=== PATIENT | female | born 1960 | race Caucasian/White ===

== ENCOUNTER 2021-07-15 14:17 | Emergency (ER) | payer BC, SELFPAY ==
--- NOTE | ~2021-07-15 | XR_ITS ---
EXAMINATION: XR wrist RT min 3V, XR hand RT min 3V DATE: 07/15/2021 14:44 INDICATION: Right hand and wrist pain post fall TECHNIQUE: 1. Posteroanterior, ulnar deviation, oblique, and lateral views of the right wrist were obtained. 2. Dorsal palmar, oblique and lateral views of the right hand were obtained. COMPARISON: None. FINDINGS: Alignment of the right hand and wrist are normal. No fracture identified. Mild polyarticular osteoar thritis involving the first carpometacarpal, first metacarpophalangeal and multiple interphalangeal j oints with distal predominance. Mild periarticular soft tissue swelling at the second metacarpophalan geal and fifth proximal interphalangeal joints. IMPRESSION: 1. 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 No acute osseous abnormality. Reviewed, dictated and finalized at location A. IMPRESSION: 1. 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 No acute osseous abnorma lity.
[2021-07-15 14:28] VITALS: BP 143/72; PULSE 69; RESP 16; TEMP 37.4; O2SAT 99
--- NOTE | 2021-07-15 14:28 | ED.UPPEXIN ---
HPI - Extremity Injury (Upper) General Chief Complaint: Extremity Injury, Upper Stated Complaint: RIGHT ARM/HAND PAIN Time Seen by Provider: 07/15/21 14:28 Source: patient and RN notes reviewed History of Present Illness HPI narrative: Patient is a 61-year-old female who presents the urgent care with complaints of right arm and hand pain. Patient states that she fell in the shower last night, catching herself with her right hand and is now having pain to the right palm radiating up the right forearm. Patient states that she did not hit her head and no loss of consciousness. States that she took a leftover oxycodone which is not touching her pain . No other acute complaints. No acute distress noted. Patient aware of the plan of care. Some parts of this dictation were generated by voice recognition software and may contain typographical and/or grammatical inaccuracies. Related Data Allergies Allergy/AdvReac Type Severity Reaction Status Date / Time No Known Allergies Allergy Unverified 04/14/12 16:11 Review of Systems Review of Systems: CONSTITUTIONAL: Denies fever, chills, or sweats. EYES: Denies visual changes, redness, or discharge. ENT: Denies rhinorrhea, congestion, sore throat, or otalgia. CARDIOVASCULAR: Denies chest pain, palpitations, or edema. RESPIRATORY: Denies cough or dyspnea. GASTROINTESTINAL: Denies abdominal pain, nausea, vomiting, or diarrhea. GENITOURINARY: Denies dysuria or hematuria. SKIN: Denies rash or itching. MUSCULOSKELETAL: Reports of right hand and right wrist pain NEUROLOGIC: Denies headache, numbness, or weakness. All other systems reviewed are negative, except as documented in HPI. PMFSH Comments At the time of my signature, I reviewed and agree with the nursing past medical, surgical, social, and family history. There is no relevant family history pertinent to the patient complaint. Exam Narrative: GENERAL: This is a well-nourished, well-developed patient, in no apparent distress. HEAD: normocephalic, atraumatic. EYES: PERRL. Sclera clear/white. Vision is grossly intact. EARS: External ears normal NOSE: External nose normal with no obvious nasal discharge, nares without redness, no rhinorrhea. THROAT: Mucous membranes moist NECK: Neck supple CARDIOVASCULAR: Regular rate and rhythm without murmurs, gallops, or rubs. RESPIRATORY: Clear to auscultation. Breath sounds equal bilaterally. No wheezes, rales, or rhonchi. SKIN: Small blood blister noted to the normal aspect of the right middle finger. Warm, intact with no suspicious lesions or rash, good texture and turgor. NEURO: awake, alert, and oriented to person, place and time. There were no obvious focal neurologic abnormalities. EXTREMITIES: No obvious deformity or fracture noted to right upper extremity/right hand. No ecchymosis or erythema noted. Range of motion not tested due to complaints of pain. Moderate tenderness over the thenar eminence of the right hand. Positive strong right radial pulse with capillary refill less than 2 seconds. Course Vital Signs Vital signs: Vital Signs Temperature 99.4 F 07/15/21 14:28 Pulse Rate 69 07/15/21 14:28 Respiratory Rate 16 07/15/21 14:28 Blood Pressure 143/72 H 07/15/21 14:28 Pulse Oximetry 99 07/15/21 14:28 Temperature 99.4 F 07/15/21 14:28 Pulse Rate 69 07/15/21 14:28 Respiratory Rate 16 07/15/21 14:28 Blood Pressure 143/72 H 07/15/21 14:28 Pulse Oximetry 99 07/15/21 14:28 Reviewed-patient is informed that they may have pre-hypertension or hypertension based on a blood pressure reading in the department. I recommend the patient call the primary care provider listed on their discharge instructions or a physician of their choice this week to arrange follow-up for further evaluation of possible pre-hypertension or hypertension. MDM - Extremity Injury (Upper) MDM Narrative Medical decision making narrative: Reviewed x-ray results with the patient. She is delroy
== END 2021-07-15 15:28 | disposition home or self-care (01) ==
PROVIDERS: Emergency Provider Nurse Practitioner Family; PCP Internal Medicine
DX: S60.221A Contusion of right hand, initial encounter (principal); W18.2XXA Fall in (into) shower or empty bathtub, initial encounter; Y93.E1 Activity, personal bathing and showering; M19.041 Primary osteoarthritis, right hand
CPT/HCPCS: 73110; 73130; 99213; G0463

== ENCOUNTER 2021-09-27 15:14 | Outpatient (CLI) | payer BC, SELFPAY ==
--- NOTE | ~2021-09-27 | MM_ITS ---
EXAMINATION: MM screening [facility] BI w gerald HISTORY: Screening mammogram TECHNIQUE: Craniocaudal and mediolateral oblique 3-D tomosynthesis images were obtained and synthetic 2-D images were generated. CAD analysis was submitted and interpreted. COMPARISON: 03/02/2019, , 12/12/2016 bilateral screening mammogram examinations. The urinary The BREAST PARENCHYMAL COMPOSITION: There are scattered areas of fibroglandular density. FINDINGS: There is no evidence of suspicious mass, calcification, or architectural distortion to sugg est malignancy in either breast. There has been no suspicious interval change. IMPRESSION: 1. No mammographic evidence of malignancy. 2. Recommend routine screening mammography in one year. BI-RADS Category 1: Negative Reviewed, dictated and finalized at location A. COMMUNICATIONS LINE MECHANIC
== END 2021-09-27 15:15 | disposition home or self-care (01) ==
PROVIDERS: PCP Internal Medicine; Visit Provider Internal Medicine
DX: Z12.31 Encounter for screening mammogram for malignant neoplasm of breast (principal)
CPT/HCPCS: 77063; 77067

== ENCOUNTER → 2023-03-05 11:04 | Outpatient (CLI) | payer BC, SELFPAY ==
--- NOTE | ~2023-03-05 | MM_ITS ---
EXAMINATION: MM screening [facility] BI w gerald HISTORY: Screening mammogram TECHNIQUE: Craniocaudal and mediolateral oblique 3-D tomosynthesis images were obtained and synthetic 2-D images were generated. CAD analysis was submitted and interpreted. COMPARISON: 09/27/2021, 03/02/2019, 01/05/2018 BREAST PARENCHYMAL COMPOSITION: There are scattered areas of fibroglandular density. FINDINGS: No suspicious mass, calcification, or architectural distortion are identified in either [place] ast to suggest malignancy. There has been no suspicious interval change. IMPRESSION: 1. No mammographic evidence of malignancy. 2. Recommend routine screening mammography in one year. BI-RADS Category 1: Negative Reviewed, dictated and finalized at location A.
--- NOTE | ~2023-03-05 | DEXA_ITS ---
Bone Density Report Name: CELINA COLON Age: 62 Sex: Female Ethnicity: White Date of : 1960 Indication: postmenopausal; screening for osteoporosis; Referring Provider: YAIMA*, YADIRA Morfin Study: Bone densitometry was performed. Exam Date: March 05, 2023 Accession number: [id number] Bone Density: Region BMD T-score Z-score Classification AP Spine (L1-L4) 0.967 -0.7 0.9 Normal Femoral Neck (Left) 0.766 -0.7 0.7 Normal Total Hip (Left) 0.869 -0.6 0.5 Normal Femoral Neck (Right) 0.708 -1.3 0.1 Osteopenia Total Hip (Right) 0.801 -1.2 -0.1 Osteopenia Total Hip Mean 0.835 -0.9 0.2 Normal World Health Organization criteria for BMD impression classify patients as: Normal (T-score at or above -1.0), Osteopenia (T-score between -1.0 and -2.5), or Osteoporosis (T-score at or below -2.5). 10-year Fracture Risk(1): Major Osteoporotic Fracture 7.8% Hip Fracture 0.6% Reported Risk Factors: [place] (), Neck BMD=0.708, BMI=23.7 (1) FRAX(R) Version 3.08. Fracture probability calculated for an untreated patient. Fracture probability may be lower if the patient has received treatment. Impression: The patient has low bone mass, based on the Right Femoral Neck T-score. The patient has an estimated ten-year risk of hip fracture of 0.6% and an estimated ten-year risk of major fracture of 7.8%, based on the WHO FRAX algorithm. Discussion: BONE DENSITY IS LOW AT ONE OR MORE SKELETAL SITES. This patient's lowest T-score is low at one or more skeletal sites. It meets the World Health Organization's (WHO) criteria for ?low bone mass? (T-score between -1.0 and -2.5). The patient's 10-year risk of fracture as calculated by FRAX is less than the threshold where pharmacological therapy is recommended by the National Osteoporosis Foundation (NOF). However, all treatment decisions require clinical judgment and consideration of individual patient factors, including patient preferences, comorbidities, previous drug use, risk factors not captured in the FRAX model (e.g., frailty, falls, vitamin D deficiency, increased bone turnover, interval significant decline in bone density) and possible under or overestimation of fracture risk by FRAX. The patient should follow a healthful lifestyle (good nutrition with adequate calcium and vitamin D, and appropriate weight-bearing exercise). Follow-Up: Consider repeating this study in 2 to 3 years to reassess this patient's status, or sooner if there is some new clinical indication. Reported by: [facility] on 03/05/2023 11:43:00 AM. Reviewed, dictated and finalized at location ARony ROCA
== END ==
PROVIDERS: PCP Internal Medicine; Visit Provider Internal Medicine
DX: Z12.31 Encounter for screening mammogram for malignant neoplasm of breast (principal); M81.0 Age-related osteoporosis without current pathological fracture; M85.851 Other specified disorders of bone density and structure, right thigh
CPT/HCPCS: 77063; 77067; 77080

== ENCOUNTER 2025-01-13 09:50 | Outpatient (CLI) | payer OTHER, SELFPAY | END 2025-01-13 09:51 | disposition home or self-care (01) | LOC: MICIMG 09:52 | PROVIDERS: PCP Internal Medicine; Visit Provider Internal Medicine | DX: Z12.31 Encounter for screening mammogram for malignant neoplasm of breast (principal) | CPT/HCPCS: 77063; 77067 ==

== ENCOUNTER 2025-10-17 14:30 | Outpatient (CLI) | payer MEDICARE, SELFPAY ==
[2025-10-17 14:58] LABS: Hematocrit 28.8 % (37.0-47.0); Hemoglobin 9.3 g/dL (12.0-15.0); Immature Granulocyte Percent A 0.3 % (0-0.5); Lymphocytes Absolute Auto 1.98 K/mm3 (0.9-3.2); Mean Corpuscular HGB Conc 32.3 g/dl (32-36); Mean Corpuscular Hemoglobin 30.4 pg (26-34); Mean Corpuscular Volume 94.1 fl (80-100); Nucleated Red Blood Cells Absolute Auto 0.000 K/mm3 (0.0-0.012); Nucleated Red Blood Cells Perc 0.0 % (0.0-0.2); Platelet Count Result 351 k/mm3 (150-375); Red Blood Count 3.06 M/mm3 (4.2-5.4); White Blood Count 6.8 K/mm3 (4.5-10.0)
[2025-10-17 15:20] LABS: Alanine Aminotransferase 12 U/L (6-35); Albumin Level 3.7 g/dL (3.5-5.1); Alkaline Phosphatase 48 U/L (38-126); Anion Gap 5 mmol/L (4-12); Aspartate Amino Transferase 21 U/L (14-36); Bilirubin,Total 0.2 mg/dL (0.2-1.3); Blood Urea Nitrogen 23 mg/dL (7-17); Calcium 8.6 mg/dL (8.4-10.2); Carbon Dioxide 26 mmol/L (22-30); Chloride 107 mmol/L (98-107); Estimated Glomerular Filt Rate > 60; Glucose 130 mg/dL (65-110); Potassium 3.6 mmol/L (3.4-5.0); Sodium 138 mmol/L (137-145); Total Protein 6.3 g/dL (6.3-8.2)
--- OUTSIDE RECORDS SUMMARY | 2025-10-17 15:33 | XMS_ITS | Encounter Summary ---
Author Organization [facility] Address [address] [place] [address] Care Team Providers Care Environmental Field Team Member Name Role Phone Gallo Hardy MD Primary Care Provider [phone] Encounter Details Date Type Department Care Team (Late st Contact Info) Description 2019 Lab Requisition [facility] Care DermPath Lab [address] [place] [id number] Michelle Arias MD [address] [facility] [address] [place] [address] Social History Tobacco Use Types Packs/Day Years Used Date Smoking Tobacco: Never Assessed Comments Unknown Sex and Gender Information Value Date Recorded Sex Assigned at Not on file Legal 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 Gender Identity Not on file Sexual Orientation Not on file documented as of this encounter Plan of Treatment Not on file documented as of this encounter Procedures Procedure Name Priority Date/Time Associated Diagnosis Comments DERMATOPATHOLOGY Routine 05/06/2019 12:0 0 AM CDT documented in this encounter Results * DERMATOPATHOLOGY (05/06/2019 12:00 AM CDT) Case Report Dermatopathology Report Case: [id number] Authorizing Provider: Michelle Arias MD Collected: 05/06/2019 12:00 AM Pathologist: Belem Kline MD Received: 2019 08:45 AM Specimens: A) - Skin, left puga B) - Skin, left thigh 9 1:17 PM CDT DERMATOPATHOLOGY LABORATORY Final Diagnosis Specimen A. SKIN, left puga: BASAL CELL CARCINOMA, SUPERFICIAL MULTIFOCAL (C44.719) Specimen B. SKIN, left thigh: PROMINENT BASILAR PIGMENTATION CONSISTENT WITH SOLAR LENTIGO (L81.4) 1:17 PM T DERMATOPATHOLOGY LABORATORY at 1317 CDT Clinical History A: BCC vs SCC. Cuts shaving. B: Lentigo. Irreg color. 1:17 PM CDT DERMATOPATHOLOGY LABORATORY Gross Description Specimen A: Received is one formalin filled container labeled with the patient's name and designated left puga. The specimen consists of a shave measuring [id number]. Jar 0. Specimen B: Received is one formalin filled container labeled with the patient's name and designated left thigh. The specimen consists of a shave measuring [id number]. Jar 0. 1:17 PM [facility] DERMATOPATHOLOGY LABORATORY Microscopic Description Specimen A. SKIN, left puga: Attached to the undersurface of the epidermis, there are small aggregates of basaloid cells with a high nuclear to cytoplasmic ratio and peripheral palisading. Specimen B. SKIN, left thigh: Sections show prominent pigmentation of the basal layer without a prominent increase in melanocytes. Some of the basilar keratinocytes are slightly enlarged but uniform. The rete ridges are not elongated. 1:17 PM T DERMATOPATHOLOGY LABORATORY Disclaimer An external and internal positive and negative controls are appropriate for the histochemical, immunohistochemical and immunofluorescence stain(s) in this case (if any), except where stated explicitly. The performance characteristics of the stain(s) cited in this report were developed and its performance characteristic determined by the Dermatopathology Laboratory at [facility], directed by Dr. Mark Suarez. These tests need not be, and therefore are not, approved by the [place] Food and Drug Administration. The tests are used for clinical purposes. Billing Codes Specimen Charges Stain Charges 30666 97614 1 1 1:17 PM CDT DERMATOPATHOLOGY LABORATORY Embedded Images 1:17 PM T DERMATOPATHOLOGY LABORATORY Pathology/Cytology TISSUE SPECIMEN FROM SKIN / Unknown 05/06/2019 2019 8:45 AM CDT Miscellaneous samples (specimen) TISSUE SPECIMEN FROM SKIN / Unknown 05/06/2019 2019 8:45 AM CDT Michelle Arias MD LAB - PATHOLOGY/CYTOLOGY OR DERABLES Final Result DERMATOPATHOLOGY LABORATORY [facility] - Department of Dermatology [address] [place] [address], 5th Floor Lab [address] [phone] documented in this encounter Visit Diagnoses Not on filedocumented in this encounter Care Teams Environmental Field Team Member Relationship Specialty Start Date End Date Gallo Hardy MD [address] [place] [address] [address] [place] [address] PCP - General 09/25/11 documented as of this encounter
--- OUTSIDE RECORDS SUMMARY | 2025-10-17 15:33 | XMS_ITS | Clinical Summary ---
Author Organization [facility] Address [address] [place] [address] Care Team Providers Care Medical Concierge Name Role Phone Gallo Hardy MD Primary Care Provider [phone] Source Comments [facility],non-owned Affiliates and Associated Physician Practices is amultiple site organization consisting of ambulatory clinics and hospital sitesin [place], [place], [place]. This disclosure is being madepursuant to the Care Everywhere program and may not contain all information available regarding this patient. Last updated 18.[facility] Allergies No known active allergies Medications * Be aware that medications may not be up to date on this document. Alwaysverify current medications with the patient. 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 Gender Identity Not on file Sexual Orientation Not on file Last Filed Vital Signs Vital Sign Reading Time Taken Comments Blood Pressure 115/82 07/15/2021 1:52 AM CDT Pulse 65 07/15/2021 1:52 AM CDT Temperature 36.7 C (98 F) 07/15/2021 1:52 AM CDT Respiratory Rate 16 07/14/2021 11:0 4 PM CDT Oxygen Saturation 94% 07/14/2021 11: 15 PM CDT Inhaled Oxygen Concentration - - Weight 67.9 kg (149 lb 11.2 oz) 021 11:04 PM CDT Height 172.7 cm (5' 8) 07/14/2021 11:0 4 PM CDT Body Mass Index 22.76 07/14/2021 11:04 PM CDT Plan of Treatment Health Maintenance Due Date Last Done Comments BONE DENSITY TESTING 1960 COLOGUARD (AGES 45-75) - COL ON CA SCREENING 1960 COLON MONITORING 1960 COLONOSCOPY - COLON CA SCREENING 1960 CT COLONOGRAPHY - COLON CA SCREENING 1960 Colorectal Cancer Screening 1960 FIT - COLON CA SCREENING 1960 FLEX SIG - COLON CA SCREENING 1960 LIPID TESTING 1960 MAMMOGRAM 1960 HIV SCREENING 1975 HEPATITIS C SCREENING 05/03/1978 DTAP/TDAP/TD VACCINES (1 - Tdap) 1979 PAP SMEAR 1981 Cervical Cancer Screening 1990 PAP with HPV 1990 PNEUMOCOCCAL VACCINE 50+ (1 of 1 - PCV) 2010 ZOSTER VACCINE (1 of 2) 2010 DEPRESSION SCREENING 11/17/2024 COVID-19 VACCINE (1 - 2024-2 6 season) 2025 INFLUENZA VACCINE (#1) 2025 Respiratory Syncytial Virus (RSV) Vaccine Pt: or over 60 yrs (1 - 1-dose 75+ series) 2035 HEPATITIS B VACCINE Aged Out No longe r eligible based on patient's age to complete this topic HIB VACCINE Aged Out No longer eligi ble based on patient's age to complete this topic HPV VACCINE Aged Out No longer eligi ble based on patient's age to complete this topic MENINGOCOCCAL (Group B) VACC INE SHARED DECISION-MAKING Aged Out No longer eligibl e based on patient's age to complete this topic MENINGOCOCCAL GROUPS A/C/Y/W VACCINE Aged Out No longer eligible b ased on patient's age to complete this topic Insurance ANTHEM ANTHEM Care Teams Medical Concierge Relationship Specialty Start Date End Date Gallo Hardy MD [address] [place] [address] [address] [place] [id number] PCP - General 09/25/11
--- OUTSIDE RECORDS SUMMARY | 2025-10-17 15:33 | XMS_ITS | Clinical Summary ---
Author Organization [facility] Address [address] [place] [id number] Care Team Providers Care Sausage Linker Name Role Phone Gallo Hardy MD Primary Care Provider Allergies No known active allergies Medications escitalopram (LEXAPRO) 20 mg tablet TK 1 T PO QD 4 05/31/2019 Active cephalexin (KEFLEX) 500 mg capsule Take 500 mg by mouth daily 0 06/25/2019 Active HYDROcodone-annalee taminophen (NORCO) 7.5-325 mg per tablet Take 1 tablet by mouth 2 (two) times a day as needed 0 06/25/2019 Active traMADoL (ULTRAM) 50 mg tablet TAKE 2 TABLETS BY MOUTH EVERY 6 HOURS NEEDED FOR PAIN 01/07/2021 Active valACYclovir (VALTREX) 1 gram tablet TAKE 1 TABLET BY MOUTH EVERY 12 HOURS FOR 7 DAYS 01/03/2021 Active Active Problems Problem Noted Date Diagnosed Date Osteoarthritis of cervical spine 01/26/2010 Surgical History Surgery Date Site/Laterality Comments SPINAL FUSION 11/17/2006 - 11/16/2007 COLOSTOMY 11/17/2010 - 11/16/2011 REVISION COLOSTOMY 11/17/2011 - 11/16/2012 Social History Tobacco Use Types Packs/Day Years Used Date Smoking Tobacco: Never Alcohol Use Standard Drinks/Week Comments Yes 0 (1 standard drink = 0.6 oz pur e alcohol) AUDIT-C Answer Date Recorded Frequency of Alcohol Consumption Not on file 06/09/2019 Average Number of Drinks 1 or 2 019 Frequency of Binge Drinking Not on file 05/18 Personal Safety Answer Date Recorded Getting School Help Needed Not on file 01/30 Comments Unknown Sex and Gender Information Value Date Recorded Sex Assigned at Not on file 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 Gender Identity Not on file Sexual Orientation Not on file Last Filed Vital Signs Vital Sign Reading Time Taken Comments Blood Pressure 138/81 06/18/2019 2:18 PM CDT Pulse 66 06/18/2019 2:18 PM CDT Temperature 36.7 C (98 F) 01/10/2021 9:53 AM LEATHER SHAVER Respiratory Rate - - Oxygen Saturation 99% 06/18/2019 2:18 PM CDT Inhaled Oxygen Concentration - - Weight 73.9 kg (163 lb) 06/18/2019 2:18 PM CDT Height 172.7 cm (5' 8) 06/18/2019 2:18 PM CDT Body Mass Index 24.78 06/18/2019 2:18 PM CDT Plan of Treatment Not on file [place] [address] [place] [address] [facility] Advance Directives For more information, please contact: [phone] Documents on File Type Date Recorded Patient Parts And Service Manager Expl anation ADVANCE DIRECTIVE 06/25/2019 12:00 AM DURGA GUSTAFSON ADVANCE DIRECTIVE 06/18/2019 12:00 AM POWER OF REEL MAN FINANCIAL/MEDICAL Care Teams Sausage Linker Relationship Specialty Start Date End Date Gallo Hardy MD [address] [facility] [address] [place] [address] PCP - General 06/18/19
== END 2025-10-17 14:31 | disposition home or self-care (01) ==
PROVIDERS: PCP Internal Medicine; Visit Provider Internal Medicine
DX: D64.9 Anemia, unspecified (principal); R53.83 Other fatigue; I10 Essential (primary) hypertension
CPT/HCPCS: 36415; 80053; 85025